=== PATIENT | male | born 1990 | race Caucasian/White ===

== ENCOUNTER 2017-09-10 14:03 | Emergency (ER) | payer SELFPAY ==
[~2017-09-10] VITALS: Ht 170.2 cm; Wt 57.0 kg
[2017-09-10 14:09] VITALS: BP 108/72
== END 2017-09-10 16:00 | disposition left against medical advice (07) ==
LOC: ER 14:06
DX: R51 Headache (principal); Z53.21 Procedure and treatment not carried out due to patient leaving prior to being seen by health care provider

== ENCOUNTER 2019-04-17 21:01 | Emergency (ER) | payer SELFPAY ==
[~2019-04-17] VITALS: Ht 170.2 cm; Wt 64.0 kg
[2019-04-17] MEDS ORDERED: LIDOCAINE HCL 1% 20ML VIAL (Pyxis) INJ INFIL ONE (22:00)
[2019-04-17] MEDS ORDERED: BACITRACIN ZINC OINT UDPKT TOP ONE (22:00)
[2019-04-17] MEDS ORDERED: TETANUS, DIPHTHERIA, PERTUSSIS VAC/PF 0.5ML (>7YR OLD) IM ONE (22:00)
[2019-04-17] MEDS ORDERED: BACITRACIN 15GM TUBE TOP SCH (22:30)
[2019-04-17] MEDS ORDERED: LORAZEPAM 2MG/ML CPJ IM ONE (23:45)
[2019-04-17] MEDS ORDERED: HALOPERIDOL LACTATE 5MG/ML VIAL IM ONE (23:45)
[2019-04-18] MEDS ORDERED: LIDOCAINE HCL/EPINEPHRINE 1%-EPI 1:100,000 20 ML VIAL INFIL ONE (00:45)
[2019-04-18 00:46] LABS: BASOPHILS % 0.9 % (0.0-2.0); EOSINOPHILS % 3.4 % (0.0-5.0); HEMATOCRIT. 35.1 % (42.0-52.0); HEMOGLOBIN. 11.9 g/dL (14.0-18.0); LYMPHOCYTES % 27.5 % (20.0-50.0); MEAN CORPUSCULAR VOLUME 85.1 fL (80.0-94.0); MEAN PLATELET VOLUME 8.1 fl (7.4-10.4); MONOCYTES % 9.8 % (2.0-8.0); NEUTROPHILS % 58.4 % (40.0-76.0); PLATELET 296 x1000/uL (130-400); RED BLOOD CELL COUNT 4.12 mill/uL (4.7-6.1); RED CELL DISTRIBUTION WIDTH 14.1 % (11.6-14.6)
[2019-04-18 00:52] LABS: CHLORIDE 110 mEq/L (98-107); INR 1.1
[2019-04-18 00:57] LABS: ETHANOL BLOOD < 10 mg/dL
[2019-04-18] MEDS ORDERED: POTASSIUM CHLORIDE 20MEQ TABLET SR PO NR (03:00)
[2019-04-18] MEDS ORDERED: CEFTRIAXONE SODIUM 1 G/VIAL IM ONE (03:30)
[2019-04-18 04:40] LABS: *COCAINE SCREEN URINE NEGATIVE (NEGATIVE); METHADONE URINE SCREEN NEGATIVE (NEGATIVE)
[2019-04-18 04:41] LABS: *AMPHETAMINES SCREEN URINE PRESUMTIVE POSITIVE (NEGATIVE); *BARBITURATES SCREEN URINE NEGATIVE (NEGATIVE); *BENZODIAZEPINES SCREEN URINE NEGATIVE (NEGATIVE); CANNABINOID URINE SCREEN NEGATIVE (NEGATIVE); OPIATES URINE SCREEN NEGATIVE (NEGATIVE); PHENCYCLIDINE URINE SCREEN NEGATIVE (NEGATIVE)
[2019-04-18 14:09] VITALS: BP 105/53
== END 2019-04-18 14:10 | disposition home or self-care (01) ==
LOC: ER 21:01
DX: S01.81XA Laceration without foreign body of other part of head, initial encounter (principal); F17.200 Nicotine dependence, unspecified, uncomplicated; X99.8XXA Assault by other sharp object, initial encounter; Y93.9 Activity, unspecified; Y92.9 Unspecified place or not applicable
CPT/HCPCS: 12016; 36415; 70450; 80053; 80305; 80307; 80320; 80329; 82962; 85025; 85610; 90471; 90715; 96372; 99284; J0696; J1630; J2060; J3490; G0480

== ENCOUNTER 2019-11-06 07:56 | Emergency (ER) | payer SELFPAY ==
[~2019-11-06] VITALS: Ht 172.7 cm; Wt 73.0 kg
[2019-11-06 08:46] LABS: HEMATOCRIT. 39.5 % (42.0-52.0); HEMOGLOBIN. 13.4 g/dL (14.0-18.0); LYMPHOCYTES % 13.6 % (20.0-50.0); MEAN CORPUSCULAR HEMOGLOBIN 29.4 pg (28.0-32.0); MEAN CORPUSCULAR VOLUME 86.5 fL (80.0-94.0); MEAN PLATELET VOLUME 8.3 fl (7.4-10.4); MONOCYTES % 5.9 % (2.0-8.0); NEUTROPHILS % 77.5 % (40.0-76.0); PLATELET 359 x1000/uL (130-400); RED BLOOD CELL COUNT 4.56 mill/uL (4.7-6.1); RED CELL DISTRIBUTION WIDTH 13.9 % (11.6-14.6)
[2019-11-06 08:47] LABS: CLARITY URINE CLEAR (CLEAR); COLOR URINE YELLOW (YELLOW); KETONES URINE NEGATIVE (NEGATIVE); LEUKOCYTE ESTERASE URINE NEGATIVE (NEGATIVE); NITRITE URINE NEGATIVE (NEGATIVE); OCCULT BLOOD URINE NEGATIVE (NEGATIVE); PROTEIN URINE TRACE (NEGATIVE); SPECIFIC GRAVITY URINE 1.026 (1.005-1.030); UROBILINOGEN URINE 0.2 E.U./dL (0.2-1.0)
[2019-11-06 08:56] LABS: CHLORIDE 105 mEq/L (98-107)
[2019-11-06 09:01] LABS: ETHANOL BLOOD < 10 mg/dL
[2019-11-06 09:25] LABS: METHADONE URINE SCREEN NEGATIVE (NEGATIVE)
[2019-11-06 09:26] LABS: *AMPHETAMINES SCREEN URINE PRESUMTIVE POSITIVE (NEGATIVE); *BARBITURATES SCREEN URINE NEGATIVE (NEGATIVE); *BENZODIAZEPINES SCREEN URINE NEGATIVE (NEGATIVE); *COCAINE SCREEN URINE NEGATIVE (NEGATIVE); CANNABINOID URINE SCREEN PRESUMTIVE POSITIVE (NEGATIVE); OPIATES URINE SCREEN NEGATIVE (NEGATIVE); PHENCYCLIDINE URINE SCREEN NEGATIVE (NEGATIVE)
[2019-11-06] MEDS ORDERED: LORAZEPAM 2MG/ML CPJ IM STA (14:19)
[2019-11-06] MEDS ORDERED: OLANZAPINE 10 MG/VIAL IM ONE (14:30)
[2019-11-08 14:45] VITALS: BP 102/62
== END 2019-11-08 07:30 | disposition home or self-care (01) ==
LOC: EDUNIT# 08:05 → ER 08:05
DX: F12.10 Cannabis abuse, uncomplicated (principal); F15.10 Other stimulant abuse, uncomplicated; R41.82 Altered mental status, unspecified; R00.0 Tachycardia, unspecified; Z59.0 Homelessness
CPT/HCPCS: 36415; 80053; 80305; 80320; 81003; 82962; 85025; 93005; 96372; 99285; J2060; J3490; G0480

== ENCOUNTER 2021-05-16 03:52 | Emergency (ER) | payer SELFPAY ==
[~2021-05-16] VITALS: Ht 167.6 cm; Wt 69.0 kg
[2021-05-16] MEDS ORDERED: ACETAMINOPHEN 325MG TABLET PO ONE (04:30)
[2021-05-16] MEDS ORDERED: IBUP-2029 MT (05:48)
[2021-05-16 06:29] VITALS: BP 132/78
== END 2021-05-16 06:30 | disposition home or self-care (01) ==
LOC: ER 03:52
DX: S82.001A Unspecified fracture of right patella, initial encounter for closed fracture (principal); Y04.0XXA Assault by unarmed brawl or fight, initial encounter; Y93.89 Activity, other specified; Y92.89 Other specified places as the place of occurrence of the external cause; Y99.8 Other external cause status
CPT/HCPCS: 29505; 73562; 99284

== ENCOUNTER 2022-04-07 01:48 | Emergency (ER) | payer SELFPAY ==
[~2022-04-07] VITALS: Ht 170.2 cm; Wt 70.0 kg
[~2022-04-07 01:48] MED LIST: IBUP-2029 MT
[2022-04-07] MEDS ORDERED: ACETAMINOPHEN 325MG TABLET PO STA (04:42)
[2022-04-07 05:49] LABS: BASOPHILS % 0.7 % (0.0-2.0); EOSINOPHILS % 2.6 % (0.0-5.0); HEMATOCRIT. 39.5 % (42.0-52.0); HEMOGLOBIN. 13.3 g/dL (14.0-18.0); LYMPHOCYTES % 15.8 % (20.0-50.0); MEAN CORPUSCULAR HEMOGLOBIN 29.4 pg (28.0-32.0); MEAN CORPUSCULAR VOLUME 87.2 fL (80.0-94.0); MEAN PLATELET VOLUME 7.5 fl (7.4-10.4); MONOCYTES % 6.3 % (2.0-8.0); NEUTROPHILS % 74.6 % (40.0-76.0); PLATELET 378 x1000/uL (130-400); RED BLOOD CELL COUNT 4.52 mill/uL (4.7-6.1); RED CELL DISTRIBUTION WIDTH 14.4 % (11.6-14.6)
[2022-04-07 05:53] LABS: CHLORIDE 108 mEq/L (98-107)
[2022-04-07 05:58] LABS: ETHANOL BLOOD < 10 mg/dL
[2022-04-07] MEDS ORDERED: IBUPROFEN 600MG TABLET PO STA (06:00)
[2022-04-07] MEDS ORDERED: IBUP-2029 PO (06:03)
[2022-04-07] MEDS: ACETAMINOPHEN 325MG TABLET PO NR ×2 (06:15→06:25)
[2022-04-07 06:26] VITALS: BP 123/78
[2022-04-07 06:57] LABS: *AMPHETAMINES SCREEN URINE PRESUMTIVE POSITIVE (NEGATIVE); *BARBITURATES SCREEN URINE NEGATIVE (NEGATIVE); *BENZODIAZEPINES SCREEN URINE NEGATIVE (NEGATIVE); *COCAINE SCREEN URINE NEGATIVE (NEGATIVE); CANNABINOID URINE SCREEN NEGATIVE (NEGATIVE); METHADONE URINE SCREEN NEGATIVE (NEGATIVE); OPIATES URINE SCREEN NEGATIVE (NEGATIVE); PHENCYCLIDINE URINE SCREEN NEGATIVE (NEGATIVE)
== END 2022-04-07 06:27 | disposition home or self-care (01) ==
LOC: ER 01:48
DX: S00.83XA Contusion of other part of head, initial encounter (principal); Y08.89XA Assault by other specified means, initial encounter; Y93.89 Activity, other specified; Y92.89 Other specified places as the place of occurrence of the external cause; Y99.8 Other external cause status
CPT/HCPCS: 36415; 80048; 80305; 80320; 85025; 99284; G0480